=== PATIENT | female | born 1935 | race Caucasian/White ===

== ENCOUNTER 2021-09-21 10:43 | Outpatient (CLI) | payer MEDICARE ==
[~2021-09-21] VITALS: Ht 165 cm; Wt 79.6 kg
[2021-09-21 10:48] VITALS: BP 174/63
[2021-09-21] MEDS ORDERED: BAMLANIVIMAB 700 MG/ETESEVIMAB 1,400 MG IN NS IV ONE ×3 (11:00)
[2021-09-21] MEDS ORDERED: ACETAMINOPHEN 500 MG TAB (TYLENOL) PO PRN (11:00)
[2021-09-21] MEDS ORDERED: EPINEPHrine INJECTION 1 MG/ML AMP IM PRN (11:00)
[2021-09-21] MEDS ORDERED: ONDANSETRON 4 MG/2 ML (SDV) Z0FRAN IV PRN (11:00)
[2021-09-21] MEDS ORDERED: diphenhydrAMINE 50 MG/ML INJ (BENADRYL) IV PRN (11:00)
[2021-09-21 12:13] VITALS: BP 118/91
== END 2021-09-21 12:23 | disposition home or self-care (01) ==
LOC: INFUSION 10:43
PROVIDERS: ATTEND Nurse Practitioner
DX: U07.1 COVID-19 (principal)